=== PATIENT | male | born 1955 | race Caucasian/White ===

== ENCOUNTER → 2019-03-18 12:00 | Outpatient (BNVA) | payer BC, SELFPAY | PROVIDERS: Family Provider Nurse Practitioner Family; PCP Nurse Practitioner Family; Visit Provider Nurse Practitioner | DX: Z00.00 Encounter for general adult medical examination without abnormal findings (principal) | CPT/HCPCS: 36415; 80053; 80061; 84153; 85025; 86140 ==

== ENCOUNTER → 2019-10-20 11:00 | Outpatient (BNVA) | payer BC, SELFPAY | PROVIDERS: Family Provider Nurse Practitioner Family; PCP Nurse Practitioner Family; Visit Provider Nurse Practitioner Family | DX: E11.9 Type 2 diabetes mellitus without complications (principal); E78.2 Mixed hyperlipidemia; I10 Essential (primary) hypertension; E78.00 Pure hypercholesterolemia, unspecified; E55.9 Vitamin D deficiency, unspecified | CPT/HCPCS: 80053; 80061; 81003; 82306; 83036; 84443; 85007; 85027 ==

== ENCOUNTER → 2019-10-21 08:42 | Outpatient (BNVA) | payer BC, SELFPAY | PROVIDERS: Family Provider Nurse Practitioner Family; PCP Nurse Practitioner Family; Visit Provider Nurse Practitioner Family | DX: E11.9 Type 2 diabetes mellitus without complications (principal); E78.2 Mixed hyperlipidemia; I10 Essential (primary) hypertension; E78.00 Pure hypercholesterolemia, unspecified; E55.9 Vitamin D deficiency, unspecified; D64.9 Anemia, unspecified | CPT/HCPCS: 82607; G0103 ==

== ENCOUNTER → 2019-10-27 15:42 | Outpatient (BNVA) | payer BC, SELFPAY | PROVIDERS: Family Provider Nurse Practitioner Family; PCP Nurse Practitioner Family; Visit Provider Nurse Practitioner Family | DX: E11.9 Type 2 diabetes mellitus without complications (principal); R53.83 Other fatigue; E55.9 Vitamin D deficiency, unspecified; E78.2 Mixed hyperlipidemia; I10 Essential (primary) hypertension; N40.0 Benign prostatic hyperplasia without lower urinary tract symptoms | CPT/HCPCS: 83921; 84402; 84403 ==

== ENCOUNTER → 2020-01-14 11:30 | Outpatient (BNVA) | payer BC, SELFPAY | PROVIDERS: Family Provider Nurse Practitioner Family; PCP Nurse Practitioner Family; Visit Provider Nurse Practitioner Family | DX: I10 Essential (primary) hypertension (principal); E29.1 Testicular hypofunction; E11.9 Type 2 diabetes mellitus without complications | CPT/HCPCS: 80053; 83036; 84402; 84403; 85025 ==

== ENCOUNTER 2020-01-26 19:20 | Emergency (ER) | payer BC, SELFPAY ==
--- NOTE | 2020-01-26 19:42 | CTR_ITS ---
PROCEDURE INFORMATION: Exam: CT Head Without Contrast Exam date and time: 01/26/2020 7:44 PM Age: 64 years old Clinical indication: Weakness, facial; Patient HX: C/O R sided facial weakness x 24 hrs TECHNIQUE: Imaging protocol: Computed tomography of the head without contrast. Radiation optimization: All CT scans at this facility use at least one of these dose optimization techniques: automated exposure control; mA and/or kV adjustment per patient size (includes targeted exams where dose is matched to clinical indication); or iterative reconstruction. COMPARISON: No relevant prior studies available. RADIATION DOSE METRICS: Total DLP (mGy-cm): 921.22 FINDINGS: Brain: There are moderate periventricular and subcortical lucencies consistent with chronic microvascular ischemic changes. The chi-white differentiation is maintained. No hemorrhage. No edema. Cerebral ventricles: No ventriculomegaly. Bones/joints: Unremarkable. No acute fracture. Paranasal sinuses: Visualized sinuses are unremarkable. No fluid levels. Mastoid air cells: Visualized mastoid air cells are well aerated. Vasculature: Vascular calcifications. Soft tissues: Unremarkable. CT/CT head wo con* [id number] IMPRESSION: No acute intracranial abnormality. Chronic microvascular ischemic changes. Radiation Dose CTDIVOL = (mGy): DLP = 921.22 (mGy-cm)
[2020-01-26 19:53] VITALS: BP 172/108; PULSE 72; RESP 14; TEMP 36.9; O2SAT 96; BMI 33.7
--- NOTE | 2020-01-26 21:06 | ECG_ITS ---
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 Measurements Intervals [place] Rate: 65 P: 37 MD: 135 QRS: -1 QRSD: 84 T: 88 QT: 333 QTc: 348 Interpretive Statements SINUS RHYTHM NONSPECIFIC T-WAVE ABNORMALITY No previous ECG available for comparison Electronically Signed On 01-27-2020 22:20:09 CARDIAC MONITOR by Angela Alvarado M.D. [email or web address]/store/[id number] f
[2020-01-26] MEDS: predniSONE 20 mg Tablet 60 MG PO (21:11)
[2020-01-26] MEDS: acyclovir 400 mg Tablet 800 MG PO (21:41)
[2020-01-26 22:06] VITALS: BP 179/104; PULSE 70; O2SAT 96
--- NOTE | 2020-01-26 22:56 | ED_ITS ---
HPI - Neuro Symptoms/Deficit General: Chief Complaint: Neuro Symptoms/Deficit Stated Complaint: possible stroke Time Seen by Provider: 01/26/20 20:46 History of Present Illness: HPI Narrative: This patient is a 64-year-old male comes in with right facial droop. He said it started gradually yesterday. It has stabilized today. He cannot close his right eye and he has trouble eating and drinking because the food falls out of the right side of his mouth. He has no visual changes, no speech changes, no balance problems, no changes in strength of his extremities. No coordination problems. He does have a history of high blood pressure, diabetes. He has never had a stroke or heart attack. Onset (ago): day(s) (2) Timing confirmed by: spouse Location: right face History of same: No Severity: moderate Quality: weak Associated symptoms: Deny chest pain, headache(s), malaise, nausea or vomiting Review of Systems General: Reports: 10 or more systems reviewed and unremarkable except in HPI and below Const: Denies: fever(s), chills, fatigue or malaise Eyes: Denies: change in vision ENMT: Denies: odynophagia Card: Denies: chest pain or swelling of feet/ankles Resp: Denies: dyspnea, productive cough or non-productive cough GI: Denies: abdominal pain, nausea or vomiting : Denies: flank pain Musc: Denies: neck pain or back pain Skin/Breast: Denies: rash Neuro: Denies: headache(s), numbness in extremities or weakness in extremities Juan C/Lymph: Denies: easy bruising or easy bleeding PFSH ED PFSH: Medical History Benign prostatic hyperplasia without lower urinary tract symptoms BPH (benign prostatic hyperplasia) Diabetes mellitus Fatigue Hypercholesterolemia Hypertension Hypotestosteronemia in male Mixed hyperlipidemia Vitamin D deficiency Family History Sister Scleroderma Cancer Father Scleroderma Mother Cancer Social History Smoking and tobacco status: never smoked Alcohol intake: never Physical Exam Const: COMMON NORMALS: no acute distress, patient oriented x3, no limitations and alert GENERAL APPEARANCE: cooperative and comfortable HENMT: HEAD & SCALP: normal to inspection FACE & SINUS: Flattened naso- labial fold present and other (Right facial droop including the forehead); face not symmetric Eye: GENERAL EYE: appearance normal, both eyes and all related structures Neck/C-Spine: COMMON NORMALS: supple, no meningeal signs and no JVD Chest: COMMONS NORMALS: normal inspection of the chest Resp: COMMON NORMALS: normal respiratory effort, No use of accessory muscles and clear to auscultation bilaterally AUSCULTATION: clear to auscultation bilaterally Cardio: COMMON NORMALS: no JVD, regular rate, regular rhythm and No murmurs present (Cardio) RATE: regular rate RHYTHM: regular rhythm GI: COMMON NORMALS: Normal to inspection, nondistended, normoactive bowel sounds present, Soft to palpation and non-tender INSPECTION: Yes normal to inspection AUSCULTATION: Yes normoactive bowel sounds PALPATION: Yes Soft to palpation Back/Pelvis: COMMON NORMALS: thoracic and lumbar spine normal to inspection Extremity: COMMON NORMALS: normal to inspection Neuro: COMMON NORMALS: patient oriented x3, moves all extremities, no focal motor deficits and no sensory deficits noted SENSORIUM/ORIENTATION: Yes alert MENINGEAL SIGNS: Yes no meningeal signs CRANIAL NERVES: Yes pupillary reactivity/size and Yes other (Right facial droop. Unable to raise right eyebrow) Psych: COMMON NORMALS: mental status grossly normal, cooperative and normal affect Skin: COMMON NORMALS: no rashes or lesions noted and turgor normal GENERAL SKIN EXAM: no rashes or lesions noted and turgor normal Course ED course: CT head unremarkable. EKG unremarkable. The patient just had labs done a week ago at his primary care doctor. 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 We discussed the management of Alvarez's palsy with antivirals, steroids, management to keep the eye moist. Discussed signs to return for and follow-up r ecommendations. Vital Signs: Vital signs: Vital Signs Temperature 98.4 F 01/26/20 19:53 Pulse Rate 70 01/26/20 22:06 Respiratory Rate 14 01/26/20 19:53 Blood Pressure 179/104 01/26/20 22:06 Pulse Oximetry 96 01/26/20 22:06 Discharge Plan Discharge Patient Disposition: Home Clinical Impression: Alvarez's palsy Condition: Stable Prescriptions: New valacyclovir 1 gram tablet 1,000 mg PO TID 7 Days Qty: 21 RF: 0 prednisone 20 mg tablet 40 mg PO DAILY 5 Days Qty: 10 RF: 0 No Action citalopram [Celexa] 20 mg tablet 20 mg PO DAILY Qty: 30 RF: 5 lisinopril 10 mg tablet 10 mg PO DAILY 90 Days Qty: 90 RF: 2 Januvia 50 mg tablet 50 mg PO DAILY 90 Days Qty: 90 RF: 0 cholecalciferol (vitamin D3) 1,250 mcg (50,000 unit) capsule 50,000 unit PO DAILY 90 Days Qty: 12 RF: 2 (DME) syringe with needle [BD Integra Syringe] 3 mL 21 gauge x 1 1/2 syringe See Rx Instructions .ROUTE .MEDSUPPLY Qty: 100 RF: 0 (DME) Monoject Hypodermic [place] 20 gauge x 1 1/2 needle See Rx Instructions .ROUTE .MEDSUPPLY Qty: 6 RF: 0 rosuvastatin 5 mg tablet 5 mg PO DAILY 90 Days Qty: 90 RF: 0 allopurinol 300 mg tablet 300 mg PO DAILY Qty: 90 RF: 0 testosterone cypionate 200 mg/mL oil 200 mg IM .every two weeks 90 Days Qty: 6 RF: 0 tamsulosin 0.4 mg capsule See Rx Instructions .ROUTE .COMPLEX Qty: 60 RF: 5 Discharge Orders: Discharge Order (Routine); Ordered 01/26/20 Ordered By: Brittney Winters Referrals: Ana Kan FNP [Primary Care Provider] - Discharge Diet: Advance as tolerated Discharge Activity: Resume usual activity Patient Instructions: Alvarez Palsy (ED) Activity Restrictions/Additional Instructions: Take the medications as prescribed. You can expect your blood sugar to run high because of the steroids. Return to the ER if any new or worse symptoms. Make sure to keep the eye moist and do not let it remain open for too long as it will dry out and damage to the cornea. Coding Level of Care Code ED Change Management for Ary Reyes
[2020-01-26 23:34] LABS: Glucose Point of Care 126 mg/dL (70-110)
== END 2020-01-26 22:06 | disposition home or self-care (01) ==
PROVIDERS: Emergency Provider Emergency Medicine; PCP Nurse Practitioner Family
DX: G51.0 Bell's palsy (principal); E11.9 Type 2 diabetes mellitus without complications; I10 Essential (primary) hypertension; E78.2 Mixed hyperlipidemia
CPT/HCPCS: 12345; 36416; 70450; 82962; 93005; 99281; 99283; J7512; J8499

== ENCOUNTER → 2020-05-03 09:15 | Outpatient (BNVA) | payer OTHER, SELFPAY | PROVIDERS: PCP Nurse Practitioner Family; Visit Provider Nurse Practitioner Family | DX: G51.0 Bell's palsy (principal); E78.2 Mixed hyperlipidemia; N40.0 Benign prostatic hyperplasia without lower urinary tract symptoms; I10 Essential (primary) hypertension; E55.9 Vitamin D deficiency, unspecified; E11.9 Type 2 diabetes mellitus without complications; D64.9 Anemia, unspecified; E29.1 Testicular hypofunction; J01.90 Acute sinusitis, unspecified; B96.89 Other specified bacterial agents as the cause of diseases classified elsewhere | CPT/HCPCS: 80053; 80061; 81003; 82306; 83036; 83550; 84402; 84403; 84439; 84443; 84481; 85025; G0103 ==

== ENCOUNTER → 2020-08-11 08:21 | Outpatient (BNVA) | payer OTHER, SELFPAY | PROVIDERS: PCP Nurse Practitioner Family; Visit Provider Nurse Practitioner Family | DX: E29.1 Testicular hypofunction (principal); R53.83 Other fatigue; I10 Essential (primary) hypertension; N40.0 Benign prostatic hyperplasia without lower urinary tract symptoms; D64.9 Anemia, unspecified; E11.9 Type 2 diabetes mellitus without complications; E55.9 Vitamin D deficiency, unspecified; E78.2 Mixed hyperlipidemia; E78.00 Pure hypercholesterolemia, unspecified | CPT/HCPCS: 80053; 82746; 83036; 83550; 83735; 83921; 84100; 84402; 84403; 85025; G0103 ==

== ENCOUNTER → 2020-08-23 13:39 | Outpatient (BNVA) | payer OTHER, SELFPAY | PROVIDERS: PCP Nurse Practitioner Family; Visit Provider Nurse Practitioner Family | DX: R53.83 Other fatigue (principal); E29.1 Testicular hypofunction; E11.9 Type 2 diabetes mellitus without complications | CPT/HCPCS: 83036; 84402; 84403; 84439; 84443; 85025 ==

== ENCOUNTER → 2021-01-31 11:33 | Outpatient (BNVA) | payer MEDICARE, SELFPAY | PROVIDERS: PCP Nurse Practitioner Family; Visit Provider Nurse Practitioner Family | DX: E29.1 Testicular hypofunction (principal); I10 Essential (primary) hypertension; F32.A Depression, unspecified; E55.9 Vitamin D deficiency, unspecified; R32 Unspecified urinary incontinence | CPT/HCPCS: 80053; 81003; 84402; 84403; 84439; 84443; 85025 ==

== ENCOUNTER → 2021-06-28 10:11 | Outpatient (BNVA) | payer MEDICARE, SELFPAY | PROVIDERS: PCP Nurse Practitioner Family; Visit Provider Nurse Practitioner | DX: R32 Unspecified urinary incontinence (principal); E11.9 Type 2 diabetes mellitus without complications; E78.2 Mixed hyperlipidemia; E29.1 Testicular hypofunction | CPT/HCPCS: 80053; 83036; 84403 ==

== ENCOUNTER → 2021-07-01 09:56 | Outpatient (BNVA) | payer MEDICARE, SELFPAY | PROVIDERS: PCP Nurse Practitioner Family; Visit Provider Nurse Practitioner | DX: E87.5 Hyperkalemia (principal) | CPT/HCPCS: 80053 ==

== ENCOUNTER 2021-07-05 17:11 | Outpatient (CLI) | payer MEDICARE, SELFPAY ==
[2021-07-05 17:50] LABS: Alanine Aminotransferase 28 U/L (0-41); Alkaline Phosphatase 64 IU/L (40-130); Anion Gap 16.2 (5-19); Aspartate Amino Transferase 24 U/L (0-40); Blood Urea Nitrogen 13 mg/dL (8-23); Calcium 9.6 mg/dL (8.5-10.5); Carbon Dioxide 24 mmol/L (22-29); Chloride 100 mmol/L (98-107); Globulin 3.3 g/dL (1.3-4.6); Glucose 160 mg/dL (65-115); Osmolality Calculated 286 mOsm/kg (285-295); Potassium 4.2 mmol/L (3.5-5.1); Sodium 136 mmol/L (136-145); Total Bilirubin 0.2 mg/dL (0.15-1.2); Total Protein 7.3 g/dL (6.6-8.7)
== END 2021-07-05 17:12 | disposition home or self-care (01) ==
LOC: LAB 17:15
PROVIDERS: PCP Nurse Practitioner; Visit Provider Nurse Practitioner
DX: E87.5 Hyperkalemia (principal)
CPT/HCPCS: 80053

== ENCOUNTER → 2021-09-28 08:35 | Outpatient (BNVA) | payer MEDICARE, SELFPAY | PROVIDERS: PCP Nurse Practitioner; Referring Provider Nurse Practitioner; Visit Provider Nurse Practitioner Family | DX: N40.0 Benign prostatic hyperplasia without lower urinary tract symptoms (principal); N52.9 Male erectile dysfunction, unspecified | CPT/HCPCS: 51798; 81003; 99203 ==

== ENCOUNTER → 2021-12-06 15:32 | Outpatient (BNVA) | payer MEDICARE, SELFPAY | PROVIDERS: PCP Nurse Practitioner; Visit Provider Urology | DX: N40.0 Benign prostatic hyperplasia without lower urinary tract symptoms (principal); N52.9 Male erectile dysfunction, unspecified | CPT/HCPCS: 84403; 99214 ==

== ENCOUNTER → 2022-03-06 09:23 | Outpatient (BNVA) | payer MEDICARE, SELFPAY | PROVIDERS: PCP Nurse Practitioner; Visit Provider Urology | DX: R79.89 Other specified abnormal findings of blood chemistry (principal); E29.1 Testicular hypofunction | CPT/HCPCS: 84403 ==

== ENCOUNTER → 2022-03-21 11:03 | Outpatient (BNVA) | payer MEDICARE, SELFPAY | PROVIDERS: PCP Nurse Practitioner; Visit Provider Nurse Practitioner | DX: R42 Dizziness and giddiness (principal); R27.8 Other lack of coordination | CPT/HCPCS: 80053; 85025; 85651; 86038; 86431 ==

== ENCOUNTER 2022-04-04 14:57 | Emergency (ER) | payer MEDICARE, SELFPAY ==
[2022-04-04] VITALS (12 sets, daily range): BP systolic 149–195; BP diastolic 70–105; PULSE 58–75; RESP 15–25; TEMP 36.6; O2SAT 95–98; BMI 34.4
--- NOTE | 2022-04-04 15:21 | ED_ITS ---
HPI - Dizziness General: Chief Complaint: Dizziness Stated Complaint: high bloodpressure Time Seen by Provider: 04/04/22 15:21 History of Present Illness: HPI Narrative: Mr. Johnson is a 67-year-old gentleman presenting to the emerged department for episode of dizziness with high blood pressure. He does have a history of hypertension, hyperlipidemia, diabetes, Alvarez's palsy, hypersomnia. He has had episodic symptoms over the past 2 to 3 weeks. Does not correlate with any particular activity or time of day. He denies persistent neurologic symptoms. Intensity when symptoms are present is moderate to severe. No other specific changes in health, exacerbating, or alleviating factors identified. Onset (ago): week(s) Timing: intermittent Severity: moderate Description: sense of movement, lightheadedness, off-balance and difficulty w alking History of similar symptoms: No Exacerbating factors: nothing Relieving factors: nothing Associated symptoms: Reports other Associated neuro symptoms: Reports gait changes Review of Systems General: Reports: 10 or more systems reviewed and unremarkable except in HPI and below PFSH ED PFSH: Medical History Acute bacterial sinusitis Acute bacterial sinusitis Anemia Alvarez's palsy Benign prostatic hyperplasia without lower urinary tract symptoms BPH (benign prostatic hyperplasia) Diabetes mellitus Fatigue Hypercholesterolemia Hypersomnia Hypertension Hypotestosteronemia in male Influenza vaccine needed Mixed hyperlipidemia Vitamin D deficiency Family History Sister Scleroderma Cancer Father , at age 63 Scleroderma Mother , at age 73 Cancer Lung Heart attack Social History Smoking and tobacco status: never smoked Alcohol intake: never Adopted: No Lives independently: Yes Household members: spouse Marital status: Current occupational status: employed and retired History of recent travel: No Physical Exam Const: COMMON NORMALS: patient oriented x3 and alert GENERAL APPEARANCE: cooperative and well developed HENMT: COMMON NORMALS: normocephalic and atraumatic HEAD & SCALP: normocephalic and atraumatic THROAT: posterior oropharynx normal Eye: COMMON NORMALS: conjunctivae normal CONJUNCTIVA: Yes conjunctivae normal SCLERA: sclerae normal Neck/C-Spine: COMMON NORMALS: supple GENERAL: Yes trachea midline Resp: COMMON NORMALS: clear to auscultation bilaterally EFFORT & INSPECTION: Yes able to speak in complete sentences AUSCULTATION: clear to auscultation bilaterally Cardio: COMMON NORMALS: regular rate and regular rhythm RATE: regular rate RHYTHM: regular rhythm GI: COMMON NORMALS: Soft to palpation PALPATION: Yes Soft to palpation and No Tenderness to palpation present (GI) Extremity: GENERAL: Yes normal exam except as noted and No edema Neuro: COMMON NORMALS: patient oriented x3, CN's II-XII intact bilaterally (bells palsy chronic), moves all extremities, no focal motor deficits and no sensory deficits noted SENSORIUM/ORIENTATION: Yes alert and No Orientation impaired Psych: COMMON NORMALS: mental status grossly normal and Normal thought process present THOUGHT PROCESS: Normal thought process present Course Vital Signs: Vital signs: Vital Signs Temperature 97.8 F 04/04/22 15:04 Pulse Rate 74 04/04/22 19:53 Respiratory Rate 18 04/04/22 19:32 Blood Pressure 152/76 04/04/22 19:53 Pulse Oximetry 97 04/04/22 19:53 Oxygen Delivery Me thod 04/04/22 19:32 MDM - Dizziness Medical Decision Making 67-year-old gentleman presenting with intermittent neurologic symptoms. No focal neurologic deficits appreciated on clinical exam and patient is nontoxic in appearance. EKG notable for sinus rhythm, normal intervals, left axis deviation and nonspecific ST segment abnormalities. No STEMI. Labs overall similar to prior with mild hemoconcentration and evidence of dehydration on metabolic panel which is new. Negative range 2-hour delta troponin. TSH is mildly elevated with mildly low free T4 though likely not significant enough to explain symptoms. No UTI. Discussed with patient. Chest x-ray with borderline cardiomegaly, no lobar consolidation or pneumothorax. CT head negative for acute intracranial abnormality. Patient's hypertension treated with hydralazine. The exact cause of patient symptoms is unclear, hypertension with transient neurologic symptoms. I discussed possible disposition options. The results of ED evaluation were discussed with the patient including prescriptions and/or symptomatic cares (if applicable) including appropriate and responsible use, followup plan, and return precautions. The patient verbalized understanding and felt safe for discharge. Medical Records I reviewed the patient's medical records. Lab Data I reviewed the patient's lab results. 04/04/22 15:31 04/04/22 15:31 Radiology Impressions Chest X-Ray 04/04/22 15: IMPRESSION: Borderline cardiomegaly. No active disease. Head CT 04/04/22 15:52 IMPRESSION: 1. No acute intracranial abnormalities. 2. Age-related cerebral white and chi matter changes. Laboratory Results WBC 7.0 10^3/uL (4.0-10.0) 04/04/22 15:31 RBC 5.56 10^6/uL (4.1-5.3) H 04/04/22 15: Hgb 16.9 g/dL (11.7-16.6) H 04/04/22 15: Hct 51.0 % (42.0-52.0) 04/04/22 15: MCV 91.7 fl (80-94) 04/04/22 15: MCH 30.4 pg (28.0-34.0) 04/04/22 15: MCHC 33.1 g/dL (30.0-36.0) 04/04/22 15: RDW 14.5 % (12.1-15.1) 04/04/22 15: Plt Count 173 10^3/cmm (130-400) 04/04/22 15: MPV 9.9 fL (7.4-10.4) 04/04/22 15: Neut % (Auto) 69.4 % 04/04/22 15: Lymph % (Auto) 22.8 % 04/04/22 15: [place] % (Auto) 5.4 % 04/04/22 15: Eos % (Auto) 2.0 % 04/04/22 15: Baso % (Auto) 0.3 % 04/04/22 15: Neut # (Auto) 4.88 10^3/uL (1.8-7.7) 04/04/22 15: Lymph # (Auto) 1.6 10^3/uL (0.8-4.8) 04/04/22 15: [place] # (Auto) 0.4 10^3/uL (0.2-0.9) 04/04/22 15: Eos # (Auto) 0.1 10^3/uL (0.0-0.8) 04/04/22 15: Baso # (Auto) 0.0 10^3/uL (0.0-0.1) 04/04/22 15:31 Nucleated RBC % (auto) 0 % 04/04/22 15:31 Nucleated RBCs # 0.0 /100WBC 04/04/22 15:31 Sodium 133 mmol/L (136-145) L 04/04/22 15:31 Potassium 3.9 mmol/L (3.5-5.1) 04/04/22 15:31 Chloride 97 mmol/L (98-107) L 04/04/22 15:31 Carbon Dioxide 26 mmol/L (22-29) 04/04/22 15:31 Anion Gap 13.9 (5-19) 04/04/22 15:31 BUN 10 mg/dL (8-23) 04/04/22 15:31 Creatinine 0.9 mg/dL (0.7-1.2) 04/04/22 15:31 GFR Calculation 84.4 mL/min (90-130) L 04/04/22 15:31 Glucose 173 mg/dL (65-115) H 04/04/22 15:31 Calculated Osmolality 279 mOsm/kg (285-295) L 04/04/22 15:31 Calcium 8.8 mg/dL (8.5-10.5) 04/04/22 15:31 Magnesium 2.0 mg/dL (1.7-2.3) 04/04/22 15:31 Total Bilirubin 0.2 mg/dL (0.15-1.2) 04/04/22 15:31 AST 19 U/L (0-40) 04/04/22 15:31 ALT 20 U/L (0-41) 04/04/22 15:31 Alkaline Phosphatase 79 U/L (40-130) 04/04/22 15:31 Troponin T Baseline 11 ng/L (0-15) 04/04/22 15:31 Troponin T 120 Minute 10.19 ng/L (0-15) 04/04/22 17:42 Delta Troponin T -0.81 ABS# (0-10) L 04/04/22 17:42 NT-Pro-B Natriuret Pep 42 pg/mL (0-125) 04/04/22 15:31 Total Protein 6.9 g/dL (6.6-8.7) 04/04/22 15:31 Albumin 4.2 g/dL (3.5-5.2) 04/04/22 15:31 Globulin 2.7 g/dL (1.3-4.6) 04/04/22 15:31 TSH 4.68 uIU/mL (0.27-4.20) H 04/04/22 15:31 Free T4 0.73 ng/dL (0.82-1.77) L 04/04/22 15:32 Urine Color Yellow (Yellow) 04/04/22 18:05 Urine Appearance Clear (CLEAR) 04/04/22 18:05 Urine pH 6 (5-7) 04/04/22 18:05 Ur Specific [place] 1.015 (1.005-1.030) 04/04/22 18:05 Urine Protein Neg (Negative) 04/04/22 18:05 Urine Glucose (UA) Norm (Normal) 04/04/22 18:05 Urine Ketones Negative (Negative) 04/04/22 18:05 Urine Blood Neg (Negative) 04/04/22 18:05 Urine Nitrate Negative (Negative) 04/04/22 18:05 Urine Bilirubin Neg (Negative) 04/04/22 18:05 Urine Urobilinogen 4 mg/dL (Negative) H 04/04/22 18:05 Ur Leukocyte Esterase Negative (Negative) 04/04/22 18:05 Discharge Plan Discharge Patient Disposition: Home Clinical Impression: Dehydration, mild, Hypertension, Episode of transient neurologic symptoms Condition: Stable Prescriptions: New amlodipine 5 mg tablet 5 mg PO BID Qty: 60 0RF hydralazine 25 mg tablet 25 mg PO TID PRN (Reason: hypertension) Qty: 60 0RF Rx Instructions: SBP >180 or DBP >110 No Action lidocaine HCl [Xylocaine] 10 mg/mL (1 %) solution 1 ml IM ONCE Qty: 1 0RF ceftriaxone 1 gram recon soln 1 g IM ONCE Qty: 1 0RF dexamethasone sodium phosphate 10 mg/mL solution 10 mg IM ONCE Qty: 1 0RF (DME) syringe with needle [BD Integra Syringe] 3 mL 21 gauge x 1 1/2 syringe See Rx Instructions .ROUTE .MEDSUPPLY Qty: 100 0RF Rx Instructions: As directed (DME) Monoject Hypodermic [place] 20 gauge x 1 1/2 needle See Rx Instructions .ROUTE .MEDSUPPLY Qty: 6 0RF Rx Instructions: As directed Fluarix Quad [id number] (PF) 60 mcg (15 mcg x 4)/0.5 mL syringe 0.5 ml IM ONCE Qty: 0.5 0RF cholecalciferol (vitamin D3) 1,250 mcg (50,000 unit) capsule See Rx Instructions .ROUTE .COMPLEX Qty: 12 3RF Dose Instruction: TAKE 1 CAPSULE BY MOUTH ONCE A WEEK FOR 90 DAYS Rx Instructions: TAKE 1 CAPSULE BY MOUTH ONCE A WEEK FOR 90 DAYS triamcinolone acetonide 40 mg/mL suspension 40 mg IM ONCE Qty: 1 0RF buspirone 5 mg tablet 5 mg PO BID Qty: 60 0RF tadalafil 20 mg tablet 20 mg PO DAILY PRN (Reason: sexual activity) Qty: 20 12RF Rx Instructions: Take approx 30min before intercourse;no more than 1 dose per 24hrs;NO NITROGLYCERIN finasteride 5 mg tablet 5 mg PO DAILY Qty: 30 12RF sildenafil 100 mg tablet See Rx Instructions .ROUTE .COMPLEX Qty: 10 1RF Dose Instruction: TAKE 1 TABLET BY MOUTH EVERY DAY NEEDED FOR SEXUAL ACTIVITY 30 MINUTES TO 4 HOURS BEFORE ACTIVITY Rx Instructions: TAKE 1 TABLET BY MOUTH EVERY DAY NEEDED FOR SEXUAL ACTIVITY 30 MINUTES TO 4 HOURS BEFORE ACTIVITY rosuvastatin 5 mg tablet See Rx Instructions .ROUTE .COMPLEX Qty: 90 0RF Dose Instruction: TAKE 1 TABLET BY MOUTH DAILY Rx Instructions: TAKE 1 TABLET BY MOUTH DAILY tamsulosin 0.4 mg capsule 0.8 mg PO DAILY 30 Days Qty: 60 5RF amlodipine 5 mg tablet 5 mg PO DAILY Qty: 30 0RF Januvia 100 mg tablet 100 mg PO DAILY Qty: 90 1RF citalopram 40 mg tablet See Rx Instructions .ROUTE .COMPLEX Qty: 30 2RF Dose Instruction: TAKE 1 TABLET BY MOUTH EVERY DAY Rx Instructions: TAKE 1 TABLET BY MOUTH EVERY DAY testosterone cypionate 200 mg/mL oil 200 mg IM .every two weeks 90 Days Qty: 6 1RF meclizine 25 mg tablet See Rx Instructions .ROUTE .COMPLEX Qty: 30 0RF Dose Instruction: TAKE 1 TABLET BY MOUTH TWICE DAILY NEEDED FOR DIZZINESS Rx Instructions: TAKE 1 TABLET BY MOUTH TWICE DAILY NEEDED FOR DIZZINESS fluticasone propionate 50 mcg/actuation spray,suspension See Rx Instructions .ROUTE .COMPLEX Qty: 16 0RF Dose Instruction: INHALE 2 SPRAYS IN EACH NOSTRIL EVERY DAY Rx Instructions: INHALE 2 SPRAYS IN EACH NOSTRIL EVERY DAY oxybutynin chloride 10 mg tablet extended release 24hr See Rx Instructions .ROUTE .COMPLEX Qty: 30 3RF Dose Instruction: TAKE 1 TABLET BY MOUTH DAILY Rx Instructions: TAKE 1 TABLET BY MOUTH DAILY lisinopril 10 mg tablet See Rx Instructions .ROUTE .COMPLEX Qty: 90 0RF Dose Instruction: TAKE 1 TABLET BY MOUTH EVERY DAY Rx Instructions: TAKE 1 TABLET BY MOUTH EVERY DAY allopurinol 300 mg tablet See Rx Instructions .ROUTE .COMPLEX Qty: 90 0RF Dose Instruction: TAKE 1 TABLET BY MOUTH DAILY Rx Instructions: TAKE 1 TABLET BY MOUTH DAILY Discharge Orders: Discharge ED (Routine); Ordered 04/04/22 Ordered By: Pantera Singh Referrals: Carlene Espinoza FNP [Primary Care Provider] - Discharge Diet: Usual diet Discharge Activity: Increase activity as tolerated Patient Instructions: Dehydration (ED), Hypertension (ED) Activity Restrictions/Additional Instructions: Thank you for visiting the emergency department. You were seen for high blood pressure and episodes of abnormal symptoms. The exact cause of the symptoms is unclear however does not appear to need inpatient management at this time. I will message case management for further outpatient evaluation. Please follow-up with cardiology and rheumatology as well as your primary care provider. Return to the emergency department for uncontrolled symptoms, any new neurologic symptoms, or anything else that you are concerned about and feel needs emergency room evaluation. Coding Level of Care Code ED Commercial Assistant for Ary Reyes
--- NOTE | 2022-04-04 15:31 | XRR_ITS ---
PROCEDURE INFORMATION: Exam: XR Chest Exam date and time: 04/04/2022 3:43 PM Age: 67 years old Clinical indication: Other: Hypertension TECHNIQUE: Imaging protocol: Radiologic exam of the chest. Views: 1 view. COMPARISON: No relevant prior studies available. FINDINGS: Lungs: There are some scattered punctate nodular densities both lung ames likely secondary to old granulomatous disease. There are no infiltrates or overt CHF. Pleural spaces: There is smooth pleural thickening along the lateral costophrenic angles bilaterally fairly symmetric in appearance that may be due to incidental subpleural fat formation. There are no pleural effusions detected. Heart/Mediastinum: Cardiac silhouette appears borderline enlarged on this portable chest. Bones/joints: Mild-moderate degenerative changes are present at the left shoulder joint and throughout the thoracic spine. XR/XR chest 1V portable [id number] IMPRESSION: Borderline cardiomegaly. No active disease.
--- NOTE | 2022-04-04 15:32 | ECG_ITS ---
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 Measurements Intervals [place] Rate: 63 P: 44 CA: 145 QRS: -4 QRSD: 86 T: 87 QT: 344 QTc: 355 Interpretive Statements SINUS RHYTHM NONSPECIFIC T-WAVE ABNORMALITY Compared to ECG 01/26/2020 21:53:03 No significant changes Electronically Signed On 04-04-2022 18:08:47 EXPERIMENTAL DISPLAY BUILDER by Pernell Flores M.D. [email or web address] [email or web address] health allen hospitalSino Gas & Energy/store/OM/[id number]
[2022-04-04 15:39] LABS: Basophils % 0.3 %; Eosinophils # 0.1 10^3/uL (0.0-0.8); Hemoglobin 16.9 g/dL (11.7-16.6); Lymphocytes # 1.6 10^3/uL (0.8-4.8); Lymphocytes % 22.8 %; Mean Corpuscular HGB Conc 33.1 g/dL (30.0-36.0); Mean Corpuscular Hemoglobin 30.4 pg (28.0-34.0); Mean Corpuscular Volume 91.7 fl (80-94); Mean Platelet Volume 9.9 fL (7.4-10.4); Monocytes # 0.4 10^3/uL (0.2-0.9); Monocytes % 5.4 %; Neutrophils # 4.88 10^3/uL (1.8-7.7); Neutrophils % 69.4 %; Nucleated Red Blood Cells % 0 %; Platelet Count 173 10^3/cmm (130-400); Red Blood Count 5.56 10^6/uL (4.1-5.3); Red Cell Distribution Width 14.5 % (12.1-15.1)
--- NOTE | 2022-04-04 15:52 | CTR_ITS ---
PROCEDURE INFORMATION: Exam: CT Head Without Contrast Exam date and time: 04/04/2022 5:01 PM Age: 67 years old Clinical indication: Altered mental status/memory loss; Additional info: Episodes of AMS, high blood pressure TECHNIQUE: Imaging protocol: Computed tomography of the head without contrast. Radiation optimization: All CT scans at this facility use at least one of these dose optimization techniques: automated exposure control; mA and/or kV adjustment per patient size (includes targeted exams where dose is matched to clinical indication); or iterative reconstruction. Other protocol: This patient has received 0 known CTs and 0 known cardiac nuclear medicine studies in the 12 months prior to the current study. COMPARISON: CT head wo con* [id number] 01/26/2020 7:45 PM RADIATION DOSE METRICS: Total DLP (mGy-cm): 1267.58 FINDINGS: Brain: There is no evidence of intracranial hemorrhage. There are no areas of mass effect, edema or midline shift. There are diffuse indistinct areas of decreased attenuation involving the periventricular white matter likely secondary to chronic white matter microvascular changes. There is mild age-related cerebral volume loss responsible for prominence of the cortical sulci. Cerebral ventricles: There is mild proportionate ventricular dilatation believed secondary to age related cerebral volume loss. Paranasal sinuses: Visualized sinuses are unremarkable. No fluid levels. Mastoid air cells: Visualized mastoid air cells are well aerated. Bones/joints: Unremarkable. No acute fracture. Soft tissues: Unremarkable. CT/CT head wo con* [id number] IMPRESSION: 1. No acute intracranial abnormalities. 2. Age-related cerebral white and chi matter changes.
[2022-04-04 16:04] LABS: Troponin(5th) Baseline 11 ng/L (0-15)
[2022-04-04 16:06] LABS: Alanine Aminotransferase 20 U/L (0-41); Albumin Level 4.2 g/dL (3.5-5.2); Alkaline Phosphatase 79 U/L (40-130); Anion Gap 13.9 (5-19); Aspartate Amino Transferase 19 U/L (0-40); Blood Urea Nitrogen 10 mg/dL (8-23); Calcium 8.8 mg/dL (8.5-10.5); Carbon Dioxide 26 mmol/L (22-29); Chloride 97 mmol/L (98-107); Globulin 2.7 g/dL (1.3-4.6); Glomerular Filtration Rate 84.4 mL/min (90-130); Glucose 173 mg/dL (65-115); Osmolality Calculated 279 mOsm/kg (285-295); Potassium 3.9 mmol/L (3.5-5.1); Sodium 133 mmol/L (136-145); Total Bilirubin 0.2 mg/dL (0.15-1.2); Total Protein 6.9 g/dL (6.6-8.7)
[2022-04-04 16:38] LABS: NT Pro B Type Natriuretic Pept 42 pg/mL (0-125); Thyroid Stimulating Hormone 4.68 uIU/mL (0.27-4.20)
--- NOTE | 2022-04-04 17:32 | ECG_ITS ---
[facility] Test Date: 2022-04-04 Pat Name: Wade Johnson Department: Room: Gender: Male Academic Affairs Director: : 1955 Requested By: Pantera Singh Order Number: [id number] Gail MD: Pernell Flores M.D. Measurements Intervals [place] Rate: 58 P: 57 SD: 148 QRS: 11 QRSD: 87 T: 86 QT: 380 QTc: 376 Interpretive Statements SINUS BRADYCARDIA Compared to ECG 04/04/2022 16:11:35 Sinus rhythm no longer present T-wave abnormality no longer present Electronically Signed On 04-04-2022 18:10:39 GUNSMITH APPRENTICE by Pernell Flores M.D. [id number]
[2022-04-04 18:15] LABS: Troponin 5 2HR 10.19 ng/L (0-15)
[2022-04-04 18:17] LABS: Troponin 5 2HR Delta -0.81 ABS# (0-10)
[2022-04-04 18:19] LABS: Add Urine Microscopic? NO; Charge for UA Resulting for Rev
[2022-04-04 18:48] LABS: Bilirubin Urine Neg (Negative); Blood Urine Neg (Negative); Glucose Urine UA Norm (Normal); Ketones Urine Negative (Negative); Leukocyte Esterase Urine Negative (Negative); Nitrate Urine Negative (Negative); Protein Urine Neg (Negative); Specific Gravity, Urine 1.015 (1.005-1.030); Urine Appearance Clear (CLEAR); Urine Color Yellow (Yellow); Urobilinogen Urine 4 mg/dL (Negative); pH Urine 6 (5-7)
[2022-04-04] MEDS: hyDRALAzine 20 mg/mL INJ 1 mL 10 MG IVP (19:00)
[2022-04-04 20:33] LABS: Free T4 Free Thyroxine 0.73 ng/dL (0.82-1.77)
--- NOTE | 2022-04-05 11:28 | DCPLANNER ---
Addendum entered by Madeline Barker 04/07/22 13:36: manager transition received the following message from the rheumatology clinic regarding follow up appointmente: At this time his apt I have set is going to be the soonest I can get him in. I can add him on the wait list but his did want them scheduled on the same day as well. Original Note: manager transition had message to contact rheumatology to see if patients appointment could be moved up any sooner. manager transition sent patients information to the front office staff at rheumatology. Patients information will be printed and reviewed. Clinic will call patient with appointment information.
--- NOTE | 2022-04-06 14:12 | DCPLANNER ---
Addendum entered by Madeline Barker 05/10/22 08:36: Patient had a US and an echo scheduled - patient did attend appointment Addendum entered by Madeline Barker 04/12/22 13:43: Patient has a follow up appointment for a US scheduled for March at 7:00, centralized scheduling will call patient with appointment information. Patient has a follow up appointment for an echo scheduled for Thursday, April 28, 2022 at 7:00, centralized scheduling will call patient with appointment information. Original Note: key account manager had message to schedule an outpatient echo cardiogram and bilateral ultrasound. key account manager faxed signed order to centralized scheduling, who will call patient with appointment information.
== END 2022-04-04 20:01 | disposition home or self-care (01) ==
PROVIDERS: Emergency Provider Emergency Medicine; PCP Nurse Practitioner
DX: I10 Essential (primary) hypertension (principal); E86.0 Dehydration; R29.5 Transient paralysis; E11.9 Type 2 diabetes mellitus without complications; E78.2 Mixed hyperlipidemia
CPT/HCPCS: 36415; 70450; 71045; 80053; 81003; 83735; 83880; 84439; 84443; 84484; 85025; 93005; 96374; 99285; J0360

== ENCOUNTER 2022-04-28 07:05 | Outpatient (CLI) | payer MEDICARE, SELFPAY ==
--- NOTE | 2022-04-28 07:00 | USCV_ITS ---
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 KNITTER HELPER Technologist: Exam Location: [facility] [place] Indication: hx of cad BP: 130 / 80 HR: 66 Rhythm: Sinus Technical Quality: Adequate MEASUREMENTS (Male / Female) Normal Values 2D ECHO LV Diastolic Diameter PLAX 3.6 cm 4.2 - 5.9 / 3.9 - 5.3 cm LV Systolic Diameter PLAX 2.6 cm IVS Diastolic Thickness 1.2 cm 0.6 - 1.0 / 0.6 - 0.9 cm IVS Systolic Thickness 1.9 cm LVPW Diastolic Thickness 1.9 cm 0.6 - 1.0 / 0.6 - 0.9 cm LVPW Systolic Thickness 1.4 cm LVOT Diameter 2.0 cm LV Ejection Fraction 2D Teich 55.5 % LV Ejection Fraction MOD 2C 51.9 % LV Ejection Fraction 2C AL 49.8 % LA Diameter 4.5 cm Aorta at Sinotubular Diameter 3.4 cm IVC Diameter 1.7 cm M-MODE Aortic Annulus Diameter 3.4 cm LA Ao Ratio MM 1.3 MV E Point Septal Separation 1.2 cm DOPPLER AV Peak Velocity 158.0 cm/s LVOT Peak Velocity 107.0 cm/s AV Area Cont Eq vti 2.8 cm squared AV Area Cont Eq pk 2.2 cm squared MV Area PHT 2.8 cm squared Mitral E to A Ratio 0.9 MV E' Velocity 53.5 cm/s Mitral E to MV E' Ratio 10.2 Mitral E to LV E' Lateral Ratio 11.1 Mitral E to LV E' Septal Ratio 9.4 TR Peak Velocity 145.0 cm/s TR Peak Gradient 8.4 mmHg TV Peak E Velocity 94.0 cm/s Right Atrial Pressure 3.0 mmHg Pulmonary Artery Systolic Pressu 11.4 mmHg RV Acceleration Time 0.1 s FINDINGS Left Ventricle Left ventricle is normal in size. LV systolic function is normal with EF of 50-55 %. No regional wall motion normalities are seen. Grade 1 diastolic dysfunction Right Ventricle Normal in size and function Right Atrium Normal in size Left Atrium Normal in size Mitral Valve Moderate mitral annular calcification. Mild mitral regurgitation. Aortic Valve Grossly normal. No significant stenosis or regurgitation. Tricuspid Valve Mild tricuspid regurgitation. Pulmonary artery systolic pressure is normal Pulmonic Valve Not well visualized Pericardium Normal Aorta Normal in size IVC Appears to be normal CONCLUSIONS LV systolic function is normal with EF of 50 to 55% Grade 1 diastolic dysfunction Mild mitral regurgitation Mild tricuspid regurgitation No comparison studies are available Pernell Flores MD (Electronically Signed) Final Date: 30 April 2022 18:30 S
== END 2022-04-28 07:06 | disposition home or self-care (01) ==
PROVIDERS: PCP Nurse Practitioner; Visit Provider Nurse Practitioner
DX: I08.1 Rheumatic disorders of both mitral and tricuspid valves (principal); R42 Dizziness and giddiness; R53.83 Other fatigue
CPT/HCPCS: 93306

== ENCOUNTER 2022-05-08 10:29 | Outpatient (CLI) | payer MEDICARE, SELFPAY ==
--- NOTE | 2022-05-08 10:40 | USCV_ITS ---
Wade Johnson Age: 67 Gender: M : 1955 Exam Date: 05/08/2022 10:51 Ordering Phys: Pantera Singh MD Technologist: CT Exam Location: [facility] [place]_ Indication: stenosis Risk Factors: Previous Vascular Surgery: Right Brachial BP: / Left Brachial BP: / Right Left Velocity (cm/s) Spectral Plaque Velocity (cm/s) Spectral Plaque Syst/Diast Broadening Syst/Diast Broadening 76.10/ 10.20 Prox CCA 132.10/ 21.80 74.10/ 10.90 Mid CCA 91.50 / 15.40 75.30/ 9.60 Distal CCA 97.00 / 17.60 51.70/ 13.40 Prox ICA 33.20 / 10.80 67.70/ 21.10 Mid ICA 58.70 / 16.55 72.20/ 19.20 Distal ICA 54.30 / 14.90 135.80 ECA 161.20 0.95 ICA/CCA 0.52 Antegrade Vertebral Antegrade 45.30/ 13.70 cm/s 28.70/ 10.10 cm/s Tri Subclavian Tri 79.40 118.0 0 FINDINGS Comparison: none available. Minimal bilateral, scattered plaque with no elevation of velocity. No significant elevation of systolic or diastolic velocities. Waveforms are normal. Antegrade vertebral arteries. CONCLUSIONS Bilateral ICA stenosis less than 50%. Minimal carotid atherosclerosis. Dr. Daksha Sutton DO (Electronically Signed) Final Date: 09 May 2022 07:32 S
== END 2022-05-08 10:30 | disposition home or self-care (01) ==
LOC: RAD 10:33
PROVIDERS: PCP Nurse Practitioner; Visit Provider Emergency Medicine
DX: G45.9 Transient cerebral ischemic attack, unspecified (principal)
CPT/HCPCS: 93880

== ENCOUNTER → 2022-05-22 14:08 | Outpatient (BNVA) | payer MEDICARE, SELFPAY | PROVIDERS: PCP Nurse Practitioner; Visit Provider Internal Medicine | DX: R07.9 Chest pain, unspecified (principal); I10 Essential (primary) hypertension; E11.9 Type 2 diabetes mellitus without complications; E78.2 Mixed hyperlipidemia | CPT/HCPCS: 99204 ==

== ENCOUNTER → 2022-05-31 08:32 | Outpatient (BNVA) | payer MEDICARE, SELFPAY | PROVIDERS: PCP Nurse Practitioner; Visit Provider Internal Medicine | DX: R07.9 Chest pain, unspecified (principal); I10 Essential (primary) hypertension; E78.00 Pure hypercholesterolemia, unspecified | CPT/HCPCS: 80048; 85025; 85610 ==

== ENCOUNTER 2022-06-01 07:33 | Outpatient (CLI) | payer MEDICARE, SELFPAY ==
[2022-06-01] VITALS (23 sets, daily range): BP systolic 140–184; BP diastolic 74–116; PULSE 54–71; RESP 8–18; TEMP 36.3–36.8; O2SAT 90–97; BMI 34.7
--- NOTE | 2022-06-01 07:30 | XACV_ITS ---
Exam Room: 2 Ht: 178 cm Wt: 110 kg BSA: 2.37 m2 Gender: Male : 1955 Any Known Allergies: Ibuprofen Exam Priority: Routine Procedure(s): Procedure Description: Diagnostic procedure Procedure Description: Left Heart Catheterization Procedure Description: Left ventriculography Procedure Description: Coronary Angiography Diagnostic Cath Status: Elective Diagnostic Findings * No significant disease noted in the Left Main, Left Anterior Descending, Right, or Circumflex coronary arteries. * Coronary angiography shows right dominance. Conclusions 1. No significant disease noted in the Left Main, Left Anterior Descending, Right, or Circumflex coronary arteries. 2. Normal left ventricular systolic function. Ejection fraction of 60%. Recommendations * Aggressive risk factor modification. * Blood pressure control. * Outpatient cardiology follow up in 4 weeks. Interventional RX Recommendation: medical therapy and/or counseling Diagnostic RX Recommendation: medical therapy and/or counseling Anticoagulation: Heparin Ventriculography Ejection Fraction: 60.0 % Pressures Phase:Rest AO : 126 / 120 ( 102 ) @ 10:36:00 AM 106 / 83 ( 97 ) @ 10:38:00 AM 130 / 63 ( 90 ) @ 10:43:00 AM 136 / 65 ( 95 ) @ 10:43:00 AM LV : 172 / -5 / 23 @ 10:41:00 AM 156 / -24 / 2 @ 10:42:00 AM 148 / -23 / 4 @ 10:43:00 AM 153 / -13 / 11 @ 10:43:00 AM Valves Phase:DefaultPhase AV : 15.0 @ 9:48:39 AM 15.0 @ 9:48:39 AM AV Mean Gradient: 15.0 @ 9:48:39 AM 15.0 @ 9:48:39 AM Clinical Evaluation EBL: 5mL-10mL Procedural Details Procedure Consent Obtained. Pre-Procedure Time Out. Identified patient by full name and date of as verbalized by the patient/guarantor. Does the consent match the physician's order: Yes. Accurate & Complete Informed Consent: Yes. Inpatient/Outpatient History & Physical on Chart: Yes. If H&P is completed, is and addenduem needed: No; If yes, is the addendum complete: N/A. Visualize and Verify Site with Patient/Guarantor: N/A. Relevant Radiology Images available: Yes. Pre-op teaching completed and patient verbalized understanding. The risks, benefits, and alternatives of sedation and/or procedure were discussed by physician. The patient agrees to continue. Procedure started. Current Diagnosis : Chest Pain. [facility] Clinical Fraility Score: 3: Managing Well. 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 Chest Pain Symptom Assessment: Typical Angina Symptoms. Correct patient, site and procedure confirmed by cath team. Current diagnosis: Chest Pain. PERRLA. Strong, equal hand waiter/waitress room service bilaterally. Lungs clear x 5 lobes. IV Site on Arrival: 20 gauge in the right anticubital. IV Fluids: 0.9% NaCl at KVO. 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 Pre Procedural Pulses: bilateral dorsalis pedis was 1+. Pre Procedural Pulses: bilateral posterior tibial was 1+. Pre Procedural Pulses: bilateral radial was 2+. Oxygen started at 2liters/min via nasal canula. right groin was prepped with chloroprep then draped in the usual sterile fashion. right radial was prepped with chloroprep then draped in the usual sterile fashion. Baseline sample Acquired. HR: 54 BPM. Physician arrived. Physician scrubbed in. Immediate Pre-Procedure Time Out. Correct Patient: Yes; Correct Procedure: Yes; Correct Site: Yes; Correct Patient Position: Yes; Correct Supplies: Yes; Dried Flammable Prep: Yes; Blood Products Available: N/A;. Lidocaine 1% infiltrated to the right groin. Arterial access obtained. A 5 latvian TIG catheter in over wire. Multiple views taken of left coronary artery. Catheter redirected to the RCA. Multiple views taken of right coronary artery. Catheter removed over the exchange wire. A 5 latvian Angled Pig catheter in over wire. EDP Sample taken: LV 172/-6,23; HR: 70 BPM; SpO2: 94%. LV gram performed in [place] @ 10 mL/second for a total of 30 mL. EDP Sample taken: LV 156/-25,2; HR: 73 BPM; SpO2: 95%. EDP Sample taken: LV 148/-24,4; HR: 73 BPM; SpO2: 95%. Pullback taken: LV 153/-14,11; AO 130/63(90); Mean: 15mmHg, Peak to Peak: 15mmHg, SEP: 21sec/min; HR: 70 BPM; SpO2: 95%. Catheter removed over the exchange wire. Physician scrubbed out. A TR Band was successful obtaining hemostatsis at the Right Radial artery insertion site. TR band placed. Hemostasis obtained. Post Procedure: Pulses reassessed and unchanged. PERRLA. Strong, equal hand waiter/waitress room service bilaterally. No VTE prophylaxis required. Medication's Wasted: Lidocaine 1% = 1 mL. Medication's Wasted: Nitro = 49.8 mg. Medication's Wasted: Heparin = 1000 units. Medication's Wasted: Other = Fentanyl 50mcg Versed 1 mg. Total IV fluids: 29 mL. Post-op diagnosis: Non-obstructive CAD. Complications: None. Estimated blood loss: 5mL-10mL. Responsiveness - Normal response to verbal stimuli; alert and oriented, PERRLA. Airway - Unaffected, no intervention required; spontaneous ventilation. Circulation: W/N/L, pulses unchanged. Nausea/Vomiting: No. Procedure completed. Patient transferred by wheelchair to CPRU. Vital chart was stopped. Access Site Site: Right Radial artery Sheath Size: 6 Fr Hemostasis Method: TR Band Hemostasis Success: Successful Procedure Medications Start: 9:26 AM Stop: 9:26 AM Medication: Versed Amount: 1 mg Route: I.V. Start: 9:26 AM Stop: 9:26 AM Medication: Fentanyl Amount: 50 mcg Route: I.V. Start: 9:34 AM Stop: 9:34 AM Medication: Nitrogylcerin Amount: 200 mcg Route: I.A. Start: 9:36 AM Stop: 9:36 AM Medication: Heparin Amount: 5000 units Route: I.V. I, the attending physician, have reviewed and verified all procedure medications. Yes, all medications given per verbal order History/Risk Factors Hypertension: Yes Dyslipidemia: Yes Peripheral Arterial Disease (PAD): No Myocardial Infarction (LA): No Obesity: No Renal Disease: No Prior Interventions PCI: No CABG: No Valve Surgery: No Report Signatures Finalized by Pernell Flores MD on 06/14/2022 09:38 AM
[2022-06-01] MEDS: aspirin 325 mg Tablet PO (08:10)
[2022-06-01] MEDS: diphenhydrAMINE 50 mg Capsule PO (08:15)
--- NOTE | 2022-06-01 09:27 | W.PM.OPSUD ---
Surgery/Procedure H&P Update DATE OF PROCEDURE: June 01, 2022 DATE H&P PERFORMED: 05/22/22 H&P UPDATE INFORMATION: I have reviewed H&P completed within last 30 days, I have examined patient prior to procedure and No changes to prior documentation PREOP DIAGNOSIS: Worsening angina PRIMARY INDICATION FOR PROCEDURE: Worsening angina PLANNED PROCEDURE: Operation Date: 06/01/22 09:10 Proposed Procedures p Left heart cath 27522,R07.9(Left) - Perenll Flores M.D Possible percutaneous coronary intervention PATIENT REASSESSED PRIOR TO SEDATION, WITH NO CHANGE NOTED: Yes PHYSICAL EXAM: alert, oriented x 3, clear to auscultation bilaterally and regular rate & rhythm AIRWAY EVAL/ANESTHESIA PLAN: normal airway, ASA III, Local Anesthesia, Risks, benefits & alternatives of sedation and/or procedure discussed and Patient agrees to continue as planned ADDITIONAL INFORMATION: Moderate sedation
--- NOTE | 2022-06-01 10:29 | PC.NURSE ---
0955: 1.2 cm hematoma noted to proximal distal edge of TR Band on right wrist, 3 ml air added to TR band. Second TR Band applied with 10 ml air. Vitals WDL. Will continue to monitor. 1036: Transfer orders received. No Change in size of hematoma to right wrist. Vitals WDL. No c/o pain or discomfort. Patient transferred from CPRU to CSU via wheelchair. All belongings sent with patient.
[2022-06-01] MEDS: amlodipine 5 mg Tablet PO (11:51)
[2022-06-01] MEDS: lisinopril 10 mg Tablet PO (11:51)
--- NOTE | 2022-06-01 13:06 | PC.NURSE ---
i went in there to change the patient the patient was a little wet and the patient refused for me to chanange him at this time.
[2022-06-01] MEDS: hyDRALAzine 25 mg Tablet PO (16:32)
== END 2022-06-01 17:41 | disposition home or self-care (01) ==
LOC: CCL 07:39 → CSU 10:52
PROVIDERS: PCP Nurse Practitioner; Visit Provider Internal Medicine
DX: I10 Essential (primary) hypertension (principal); E78.5 Hyperlipidemia, unspecified; E11.9 Type 2 diabetes mellitus without complications; Z79.84 Long term (current) use of oral hypoglycemic drugs; E78.2 Mixed hyperlipidemia; E55.9 Vitamin D deficiency, unspecified; R07.9 Chest pain, unspecified
CPT/HCPCS: 36415; 93458; 96361; 96365; 99152; 99153; C1769; C1887; C1894; G0378; J1644; J2250; J3010; J3490; J7030; Q0163; Q9967

== ENCOUNTER → 2022-06-08 13:20 | Outpatient (BNVA) | payer MEDICARE, SELFPAY | PROVIDERS: PCP Nurse Practitioner; Visit Provider Internal Medicine | DX: R76.8 Other specified abnormal immunological findings in serum (principal); I73.9 Peripheral vascular disease, unspecified; R42 Dizziness and giddiness; R26.9 Unspecified abnormalities of gait and mobility; L40.9 Psoriasis, unspecified; M79.606 Pain in leg, unspecified | CPT/HCPCS: 99204 ==

== ENCOUNTER → 2022-06-28 10:20 | Outpatient (BNVA) | payer MEDICARE, SELFPAY | PROVIDERS: PCP Nurse Practitioner; Visit Provider Psychiatry & Neurology Neurology | DX: R53.83 Other fatigue (principal); E78.00 Pure hypercholesterolemia, unspecified | CPT/HCPCS: 82607; 82746; 84443 ==

== ENCOUNTER 2022-07-04 13:45 | Outpatient (CLI) | payer MEDICARE, SELFPAY ==
--- NOTE | 2022-07-04 13:30 | USCV_ITS ---
Wade Johnson Age: 67 Gender: M : 1955 Exam Date: 07/04/2022 13:59 Ordering Phys: Omayra Soni MD Technologist: Haroldo Mehta [place] [facility] [place]: foot pain RIGHT LEFT Brachial 130.00 mmHg Brachial 151.00 mmHg Pressure (mmHg) Waveform Pressure (mmHg) Waveform 178.00 METAL WELDER 198.00 187.00 DPA 182.00 1.20 Ankle/Brachial Index 1.30 179.00 Pre-Exercise Toe Pressure 166.00 1.10 Pre-Exercise Toe/Brachial Index 1.10 FINDINGS Resting DAYAMI 1.2 on the right and 1.3 on the left Resting TBI of 1.1 on the right and 1.1 on the left CONCLUSIONS Normal resting ABIs and TBIs bilaterally, suggesting no significant arterial obstruction Dr Angela Alvarado MD FAC (Electronically Signed) Final Date: 04 Jul 2022 21:28 S
== END 2022-07-04 13:46 | disposition home or self-care (01) ==
LOC: RAD 13:47
PROVIDERS: PCP Nurse Practitioner; Visit Provider Internal Medicine
DX: I73.9 Peripheral vascular disease, unspecified (principal); R76.8 Other specified abnormal immunological findings in serum
CPT/HCPCS: 72100; 72202; 73120; 93922

== ENCOUNTER → 2022-07-18 15:47 | Outpatient (BNVA) | payer MEDICARE, SELFPAY | PROVIDERS: PCP Nurse Practitioner; Visit Provider Internal Medicine | DX: E03.9 Hypothyroidism, unspecified (principal); M54.50 Low back pain, unspecified; R42 Dizziness and giddiness; R76.8 Other specified abnormal immunological findings in serum; M79.606 Pain in leg, unspecified | CPT/HCPCS: 99213 ==

== ENCOUNTER → 2022-08-17 15:09 | Outpatient (BNVA) | payer MEDICARE, SELFPAY | PROVIDERS: PCP Nurse Practitioner; Visit Provider Nurse Practitioner | DX: E78.00 Pure hypercholesterolemia, unspecified (principal); N52.9 Male erectile dysfunction, unspecified | CPT/HCPCS: 84403; 84443 ==

== ENCOUNTER → 2022-09-18 14:25 | Outpatient (BNVA) | payer MEDICARE, SELFPAY | PROVIDERS: PCP Nurse Practitioner; Visit Provider Nurse Practitioner | DX: E29.1 Testicular hypofunction (principal) | CPT/HCPCS: 84403 ==

== ENCOUNTER 2022-11-30 06:00 | Outpatient (RCR) | payer MEDICARE, MEDICAID, SELFPAY | END 2022-12-26 23:59 | disposition home or self-care (01) | LOC: WPT 06:00 | PROVIDERS: Visit Provider Nurse Practitioner | DX: H81.10 Benign paroxysmal vertigo, unspecified ear (principal) | CPT/HCPCS: 97110; 97112; 97162; 97530 ==

== ENCOUNTER 2022-11-30 16:40 | Outpatient (CLI) | payer MEDICARE, MEDICAID, SELFPAY ==
--- NOTE | 2022-11-30 17:30 | MR_ITS ---
WS: [id number] MRI LUMBAR SPINE NONCONTRAST HISTORY: M54.9 - Dorsalgia, unspecified COMPARISON: None available. TECHNIQUE: Sagittal and axial multisequence imaging is submitted. Mild increase in the upper thoracic kyphosis. Disc spaces are narrowed. Mild curvature of the lumbar spine with increased lordosis. Abnormal signal and shape of the L5 verte bral body. There is mild anterior wedging with loss of height. There may be chronic fracture extendin g vertically through the vertebral body. Alternatively congenital anomaly. There does appear to be 2 separate components of the L5 vertebral body. Disc spaces are mildly desiccated. Conus terminates normally at L1-2 disc level. L1-L2: Mild disc bulging. Mild bilateral foraminal stenosis. L2-L3: Mild annular disc bulging with osteophytic ridging, moderate ligamentum flavum and facet arthr itis. Severe central, bilateral subarticular recess and moderate foraminal stenosis. L3-L4: Mild annular disc bulging. Complete effacement of the central CSF. There is encroachment upon the subarticular recesses. Severe central, subarticular recess and foraminal stenosis. Bilateral fora beronica stenosis, LEFT greater than RIGHT. Marked ligamentum flavum and facet arthritis. L4-L5: Asymmetric distortion of the thecal sac due to scoliosis. There is encroachment upon the ventr al thecal sac. Moderate ligamentum flavum and facet arthritis. Mild central, subarticular recess and foraminal stenosis. L5-S1: Asymmetric disc bulging with severe ligamentum flavum and facet arthritis. Small central disc protrusion. Severe RIGHT and moderate to severe LEFT foraminal stenosis. Moderate central stenosis. E ncroachment upon the subarticular recesses. IMPRESSION: 1. Abnormal L5 vertebral body. 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 This does no t appear to be acute. There is no edema. 2. L2-3: Severe central, bilateral subarticular recess and moderate foraminal stenosis. 3. L3-4: Severe central, subarticular recess and foraminal stenosis. 4. L4-5: Mild central and subarticular recess and foraminal stenosis. 5. L5-S1: Severe RIGHT and moderate to severe LEFT foraminal stenosis. Moderate central and bilateral subarticular recess encroachment.
== END 2022-11-30 16:41 | disposition home or self-care (01) ==
PROVIDERS: Visit Provider Nurse Practitioner Family
DX: M48.07 Spinal stenosis, lumbosacral region (principal); M54.40 Lumbago with sciatica, unspecified side
CPT/HCPCS: 72148

== ENCOUNTER → 2022-12-14 08:03 | Outpatient (BNVA) | payer MEDICARE, MEDICAID, SELFPAY | PROVIDERS: Visit Provider Orthopaedic Surgery | DX: M48.062 Spinal stenosis, lumbar region with neurogenic claudication (principal) | CPT/HCPCS: 36415; 72100; 80053; 81000; 85025; 99204 ==

== ENCOUNTER → 2022-12-27 11:25 | Outpatient (BNVA) | payer MEDICARE, MEDICAID, SELFPAY | PROVIDERS: PCP Nurse Practitioner Family; Visit Provider Family Medicine | DX: Z01.818 Encounter for other preprocedural examination (principal); E11.9 Type 2 diabetes mellitus without complications | CPT/HCPCS: 83036 ==

== ENCOUNTER 2023-01-05 09:59 | Day surgery (SDC) | payer MEDICARE, MEDICAID, SELFPAY ==
[2023-01-05] VITALS (13 sets, daily range): BP systolic 126–161; BP diastolic 67–97; PULSE 60–99; RESP 8–18; TEMP 36.3–36.6; O2SAT 92–98; BMI 36.0
--- NOTE | 2023-01-05 | XR_ITS ---
WS: [id number] Exam: XR lumbar spine 2-3V* [id number] Date/Time of Exam: 01/05/2023 12:00 AM Reason For Exam: ABAD PICS C-arm images of the lumbar spine were obtained for intraoperative planning and localization.
--- NOTE | 2023-01-05 10:51 | W.PM.OPSUD ---
Surgery/Procedure H&P Update DATE OF PROCEDURE: January 05, 2023 DATE H&P PERFORMED: 12/27/22 H&P UPDATE INFORMATION: I have reviewed H&P completed within last 30 days, I have examined patient prior to procedure and No changes to prior documentation PREOP DIAGNOSIS: Lumbar stenosis PLANNED PROCEDURE: Operation Date: 01/05/23 11:50 Proposed Procedures p L2-3 and L3-4 minimally invasive decompression. (Stand on left side)(Not Applicable) - Daniel Engle, DO
[2023-01-05] MEDS: sodium chloride 0.9% 1,000 ML 30 ML IV (11:09)
[2023-01-05] MEDS: methadone 10 mg Tablet PO (11:12)
--- NOTE | 2023-01-05 11:27 | ANES.PREANE2 ---
Pre-Anesthetic Assessment Height/Weight: Height 1.7 m Weight 104.326 kg Temp Pulse Resp BP Pulse Ox O2 Del Method 98 F 60 16 160/93 96 Room Air 01/05/23 10:35 01/05/23 10:35 01/05/23 11:12 01/05/23 10:35 01/05/23 11:12 01/05/23 10:36 Preop Diagnosis: Lumbar stenosis Operation Date: 01/05/23 11:50 Proposed Procedures p L2-3 and L3-4 minimally invasive decompression. (Stand on left side)(Not Applicable) - Daniel Engle DO Familial anesthetic complications: none Was Beta Jovany taken within 24 hours: N/A Was Clonidine taken within 24 hours: N/A Last intake: Intake Last Liquid Date 01/04/23 Last Liquid Time 23:00 Last Solid Date 01/04/23 Last Solid Time 19:00 Social No alcohol and No tobacco Exam alert, oriented x 3, clear to auscultation bilaterally and regular rate & rhythm Airway Submandibular: within normal limits Cervical ROM: within normal limits Mallampati: Class II Dentition: chipped Comments: Comments: Missing some CV/HEM Anemia, Coronary Artery Disease, Hypertension and Myocardial Infarction Metabolic Diabetes Mellitus, Hyperlipidemia and Morbid Obesity Musc/skel Lower Back Pain and Osteoarthritis/DJD Anesthetic Plan ASA status: 3 Anesthesia: General Medications/Allergies Home Medications Medication Instructions Recorded Confirmed Last Taken Type finasteride 5 mg tablet 5 mg PO DAILY #30 tabs 09/28/21 01/04/23 01/02/23 Rx testosterone cypionate 200 mg/mL 200 mg IM .every two weeks 90 days 09/26/22 01/04/23 12/21/22 Rx intramuscular oil #6 mL gabapentin 100 mg capsule 100 mg PO .hs #30 caps 10/10/22 01/04/23 01/02/23 Rx sitagliptin phosphate 100 mg See Rx Instructions .Route 11/27/22 01/04/23 12/28/22 Rx tablet (Januvia) .COMPLEX #90 tabs allopurinol 300 mg tablet 300 mg PO DAILY #90 tabs 12/29/22 01/04/23 01/03/23 Rx amlodipine 5 mg tablet 5 mg PO BID #180 tabs 12/29/22 01/04/23 01/01/23 Rx hydralazine 25 mg tablet 25 mg PO TID PRN hypertension #60 12/29/22 01/04/23 01/02/23 Rx tabs lisinopril 10 mg tablet 10 mg PO DAILY #90 tabs 12/29/22 01/04/23 01/02/23 Rx oxybutynin chloride 10 mg 10 mg PO DAILY #30 tabs 12/29/22 01/04/23 01/02/23 Rx tablet,extended release 24 hr meclizine 25 mg tablet 25 mg PO BID PRN Dizziness #30 tabs 01/02/23 01/04/23 12/28/22 Rx Allergies Allergy/AdvReac Type Severity Reaction Status Date / Time ibuprofen Allergy skin Verified 12/27/22 10:34 peeling Current Medications Generic Name Dose Route Start Last Admin Trade Name Freq PRN Reason Stop Dose Admin Sodium Chloride 1,000 mls @ 30 mls/hr 01/05/23 10:15 01/05/23 11:09 Sodium Chloride 0.9% IV 01/06/23 10:14 30 mls/hr .Q24H BELEM Administration PFSH Anesthesia Medical History Abnormal gait Acute bacterial sinusitis Acute bacterial sinusitis VELMA positive Anemia Alvarez's palsy Benign prostatic hyperplasia without lower urinary tract symptoms BPH (benign prostatic hyperplasia) Diabetes mellitus Dizziness Fatigue Hypercholesterolemia Hypersomnia Hypertension Hypotestosteronemia in male Influenza vaccine needed Mixed hyperlipidemia Vitamin D deficiency Family History Sister Scleroderma Cancer Father , at age 63 Scleroderma Mother , at age 73 Cancer Lung Heart attack Social History Smoking and tobacco/nicotine status: never used tobacco/nicotine Alcohol intake: never Substance/Drug Use: never Adopted: No Lives independently: Yes Household members: spouse Marital status: Current occupational status: employed and retired Data Anesthesia Cardiac Studies: Echocardiogram 04/28/22
[2023-01-05 12:53] LABS: Glucose Point of Care 107 mg/dL (70-110)
--- NOTE | 2023-01-05 12:55 | PC.NURSE ---
Patient resting. at bedside. No complaints at this time. Waiting to go to surgery.
[2023-01-05] MEDS: ceFAZolin 2,000 MG in sodium chloride 0.9% (plus) 50 ML 100 MG IV (13:22)
[2023-01-05] MEDS: lidocaine-epi 2% 20 mL INJ INJECTION (14:04)
--- NOTE | 2023-01-05 14:58 | P.OP_ITS ---
Operative Report Date of procedure: January 05, 2023 Pre-op diagnosis: Lumbar stenosis with neurogenic claudication Post-op diagnosis: same Procedure done: 1. L2-3 laminectomy with partial facetectomies 2. L3-4 laminectomy with partial facetectomies Surgeon: Daniel Engle DO Estimated blood loss (mL): 10 Procedure: 1. L2-3 laminectomy with partial facetectomies 2. L3-4 laminectomy with partial facetectomies Patient is brought to the operative suite. After undergoing anesthesia they are placed in the prone position. All areas of impingement are well padded. Patient is then prepped and draped in the normal sterile fashion. A skin incision is made over the L3/4 level. This is confirmed under c-arm guidance. A series of dilators are passed and the tubular retractor is docked on the L3 lamina. A bovie is used to clear the soft tissue off the lamina and the L 3/4 facet joint. A high speed park is then used to perform the laminectomy and take down the medial aspect of the L 3/4 facet joint. A kerrison rongeure was then used to take down the remaining lamina and smooth the edged of the laminectomy up to the point where the ligamentum flavum attaches. Attention was then brought to the medial aspect of the facet joint. The remaining medial aspect of the superior and inferior aspect of the facet joint were taken down with the kerrison from the pedicle of L3 to L 4. The facet joint had significant hypertrophy. Attention was then brought to the Ligamentum Flavum. The ligament was taken down from the lamina of L3 to L4 and out medially to the remaining facet joint. The ligament was thick. The dura was then exposed. The dura was in good repair. The L3 nerve was then traced with a curette out the L3/4 foramen and found to be adequately decompressed. The L4 nerve was traced with a curette around the L4 pedicle. The lateral recess was opened with a kerrison helping to further decompress the L4 nerve. The tubular retractor was then tilted to the contralateral side. The bovie was used to take down the soft tissue on the spinous process. The high speed park was used to take down the spinous process and then the contralateral lamina of L3. The kerrison rongeur was used to take down the remaining lamina to the point where the ligamentum flavum attached and the ligamentum flavum was taken down from L3 to L4. The kerrison rongeur was then used to reach across and take down the medial aspect of the contralateral L3/4 facet joint.The currete was used to trace the contralateral L3 nerve out the L3/4 foramen to make sure it was decompressed adequatesly and the L4 was traced around the L4 pedicle. The lateral recess was opened further with the kerrison to ensure the L4 is adequately decompressed. Wound is then irrigated copiously with saline and surgiflo is used to stop any bleeding. The tubular retractor is removed and the A skin incision is made over the L2/3 level. This is confirmed under c-arm guidance. A series of dilators are passed and the tubular retractor is docked on the L2 lamina. A bovie is used to clear the soft tissue off the lamina and the L 2/3 facet joint. A high speed park is then used to perform the laminectomy and take down the medial aspect of the L 2/3 facet joint. A kerrison rongeure was then used to take down the remaining lamina and smooth the edged of the laminectomy up to the point where the ligamentum flavum attaches. Attention was then brought to the medial aspect of the facet joint. The r emaining medial aspect of the superior and inferior aspect of the facet joint were taken down with the kerrison from the pedicle of L2 to L 3. The facet joint had significant hypertrophy. Attention was then brought to the Ligamentum Flavum. The ligament was taken down from the lamina of L2 to L3 and out medially to the remaining facet joint. The ligament was thick. The dura was then exposed. The dura was in good repair. The L2 nerve was then traced with a curette out the L2/3 foramen and found to be adequately decompressed. The L3 nerve was traced with a curette around the L3 pedicle. The lateral recess was opened with a kerrison helping to further decompress the L3 nerve. The tubular retractor was then tilted to the contralateral side. The bovie was used to take down the soft tissue on the spinous process. The high speed park was used to take down the spinous process and then the contralateral lamina of L2. The kerrison rongeur was used to take down the remaining lamina to the point where the ligamentum flavum attached and the ligamentum flavum was taken down from L2 to L3. The kerrison rongeur was then used to reach across and take down the medial aspect of the contralateral L2/3 facet joint.The currete was used to trace the contralateral L2 nerve out the L2/3 foramen to make sure it was decompressed adequatesly and the L3 was traced around the L3 pedicle. The l ateral recess was opened further with the kerrison to ensure the L3 is adequately decompressed. Wound is then irrigated copiously with saline and surgiflo is used to stop any bleeding. The tubular retractor is removed and the wound is closed with vicryl and monocryl suture. Glue is then used to protect the wound. A sterile dressing is then placed. Patient was then placed in the supine position and transferred to the PACU in stable condition.
--- NOTE | 2023-01-05 16:40 | ANE.PACU2 ---
Inpatient post-anesthesia follow up: Airway intact: Yes Vital signs: Temperature 97.4 F Pulse Rate 76 Respiratory Rate 16 Blood Pressure 126/83 Pulse Oximetry 96 Oxygen Delivery Me thod Room Air Oxygen Flow Rate 7 Fraction of Inspir ed Oxygen Hydration adequate: Yes Nausea and vomiting: No Pain level: 3 Mental status: Baseline
== END 2023-01-05 16:20 | disposition home or self-care (01) ==
PROVIDERS: PCP Nurse Practitioner Family; Visit Provider Orthopaedic Surgery
PROC: (CPT 63005; principal; 2023-01-05 11:40)
DX: M48.062 Spinal stenosis, lumbar region with neurogenic claudication (principal); I25.10 Atherosclerotic heart disease of native coronary artery without angina pectoris; I10 Essential (primary) hypertension; I25.2 Old myocardial infarction; E11.9 Type 2 diabetes mellitus without complications; E78.5 Hyperlipidemia, unspecified; E66.01 Morbid (severe) obesity due to excess calories; Z68.36 Body mass index [BMI] 36.0-36.9, adult; N40.0 Benign prostatic hyperplasia without lower urinary tract symptoms; E78.2 Mixed hyperlipidemia
CPT/HCPCS: 63047; 63048; 36416; 72100; 76000; 82962; J0690; J1100; J2405; J2704; J2710; J3010; J3490; J7030

== ENCOUNTER → 2023-01-11 14:24 | Outpatient (BNVA) | payer MEDICARE, MEDICAID, SELFPAY | PROVIDERS: PCP Nurse Practitioner Family; Visit Provider Orthopaedic Surgery | DX: Z48.89 Encounter for other specified surgical aftercare (principal) | CPT/HCPCS: 99024 ==

== ENCOUNTER → 2023-01-26 10:15 | Outpatient (BNVA) | payer MEDICARE, MEDICAID, SELFPAY | PROVIDERS: PCP Nurse Practitioner Family; Visit Provider Internal Medicine | DX: R76.8 Other specified abnormal immunological findings in serum (principal); R42 Dizziness and giddiness; I10 Essential (primary) hypertension; E11.9 Type 2 diabetes mellitus without complications; N40.0 Benign prostatic hyperplasia without lower urinary tract symptoms; E29.1 Testicular hypofunction; M79.606 Pain in leg, unspecified | CPT/HCPCS: 99214 ==

== ENCOUNTER → 2023-02-07 11:02 | Outpatient (BNVA) | payer MEDICARE, MEDICAID, SELFPAY | PROVIDERS: PCP Nurse Practitioner Family; Visit Provider Physician Assistant | DX: Z47.89 Encounter for other orthopedic aftercare (principal) | CPT/HCPCS: 72100; 99024 ==

== ENCOUNTER → 2023-02-27 10:00 | Outpatient (BNVA) | payer MEDICARE, MEDICAID, SELFPAY | PROVIDERS: PCP Nurse Practitioner Family; Visit Provider Nurse Practitioner Family | DX: M54.9 Dorsalgia, unspecified (principal); R76.8 Other specified abnormal immunological findings in serum; R42 Dizziness and giddiness; E78.00 Pure hypercholesterolemia, unspecified; I10 Essential (primary) hypertension; E11.9 Type 2 diabetes mellitus without complications | CPT/HCPCS: 80053; 85025; 85651; 86140 ==

== ENCOUNTER → 2023-03-13 12:20 | Outpatient (BNVA) | payer MEDICARE, MEDICAID, SELFPAY | PROVIDERS: PCP Nurse Practitioner Family; Visit Provider Orthopaedic Surgery | DX: Z47.89 Encounter for other orthopedic aftercare (principal) | CPT/HCPCS: 99024 ==

== ENCOUNTER → 2023-03-15 11:26 | Outpatient (BNVA) | payer MEDICARE, MEDICAID, SELFPAY | PROVIDERS: PCP Nurse Practitioner Family; Visit Provider Nurse Practitioner Family | DX: E29.1 Testicular hypofunction (principal) | CPT/HCPCS: 84402; 84403 ==

== ENCOUNTER → 2023-03-30 10:06 | Outpatient (BNVA) | payer MEDICARE, MEDICAID, SELFPAY | PROVIDERS: PCP Nurse Practitioner Family; Referring Provider Internal Medicine; Visit Provider Internal Medicine | DX: Z12.5 Encounter for screening for malignant neoplasm of prostate; E78.2 Mixed hyperlipidemia; E11.9 Type 2 diabetes mellitus without complications; E78.00 Pure hypercholesterolemia, unspecified; N52.9 Male erectile dysfunction, unspecified; Z79.890 Hormone replacement therapy; Z79.85 Long-term (current) use of injectable non-insulin antidiabetic drugs | CPT/HCPCS: 99204 ==

== ENCOUNTER → 2023-07-26 16:05 | Outpatient (BNVA) | payer MEDICARE, MEDICAID, SELFPAY | PROVIDERS: PCP Nurse Practitioner Family; Visit Provider Nurse Practitioner Family | DX: R06.02 Shortness of breath (principal); E78.2 Mixed hyperlipidemia; E11.9 Type 2 diabetes mellitus without complications; Z12.5 Encounter for screening for malignant neoplasm of prostate; E78.00 Pure hypercholesterolemia, unspecified | CPT/HCPCS: 80053; 80061; 82043; 83036; 83721; 84146; 84403; 85025; G0103 ==

== ENCOUNTER → 2023-09-21 11:27 | Outpatient (BNVA) | payer MEDICARE, MEDICAID, SELFPAY | PROVIDERS: PCP Nurse Practitioner Family; Visit Provider Internal Medicine | DX: E11.9 Type 2 diabetes mellitus without complications (principal); N52.9 Male erectile dysfunction, unspecified; E29.1 Testicular hypofunction; Z12.5 Encounter for screening for malignant neoplasm of prostate; R79.89 Other specified abnormal findings of blood chemistry; Z79.84 Long term (current) use of oral hypoglycemic drugs; Z79.890 Hormone replacement therapy | CPT/HCPCS: 99214 ==

== ENCOUNTER → 2023-11-13 16:38 | Outpatient (BNVA) | payer MEDICARE, MEDICAID, SELFPAY | PROVIDERS: PCP Nurse Practitioner Family; Visit Provider Nurse Practitioner Family | DX: R50.9 Fever, unspecified (principal) | CPT/HCPCS: 87426 ==